=== PATIENT | female | born 2000 | race Caucasian/White ===

== ENCOUNTER 2020-08-08 22:28 | Inpatient (IN) | payer OTHER ==
[~2020-08-08] VITALS: Ht 167.6 cm; Wt 63.5 kg
[2020-08-08] MEDS ORDERED: ADMELOG100 UNIT/1 SC (23:53)
[2020-08-09 00:20] LABS: BUN/CREATININE RATIO 23 (0-10)
[2020-08-09 00:22] LABS: HEMOGLOBIN 12.7 gm/dl (12.3-15.3); RED BLOOD COUNT 4.71 M/UL (4.00-5.10); WHITE BLOOD COUNT 17.6 K/UL (4.5-11.0)
[2020-08-09 07:46] LABS: BUN/CREATININE RATIO 16 (0-10)
[2020-08-09 12:15] LABS: BUN/CREATININE RATIO 17 (0-10)
[2020-08-09 18:40] LABS: BUN/CREATININE RATIO 18 (0-10)
[2020-08-09] MEDS ORDERED: SODIUM BICARBO650 M1 PO (20:01)
== END 2020-08-09 20:03 | disposition left against medical advice (07) | DRG 919 ==
LOC: CCU 23:33 → M/S 08-09 15:50
PROVIDERS: Internal Medicine; ADMIT Internal Medicine
DX: T85.694A Other mechanical complication of insulin pump, initial encounter (principal); E10.10 Type 1 diabetes mellitus with ketoacidosis without coma; E87.1 Hypo-osmolality and hyponatremia; D72.829 Elevated white blood cell count, unspecified; Z96.41 Presence of insulin pump (external) (internal); Z79.4 Long term (current) use of insulin; Z88.0 Allergy status to penicillin; Z83.6 Family history of other diseases of the respiratory system
CPT/HCPCS: 36415; 80048; 80053; 82962; 84703; 85025; J7030